=== PATIENT | male | born 1990 | race Caucasian/White ===

== ENCOUNTER 2020-03-02 23:42 | Emergency (ER) | payer OTHER ==
[~2020-03-02] VITALS: Ht 177.8 cm; Wt 72.6 kg
[2020-03-02 23:49] VITALS: BP 70/48
[2020-03-03] MEDS ORDERED: AMOXICILLIN 50500 MG PO (00:13)
[2020-03-03] MEDS ORDERED: TRAMADOL 50 MG50 MG PO (00:13)
== END 2020-03-03 00:23 ==
LOC: M.ERS 23:42
DX: K02.9 Dental caries, unspecified (principal)